=== PATIENT | female | born 1960 | race Caucasian/White ===

== ENCOUNTER 2019-04-17 15:12 | Emergency (ER) | payer MEDICARE ==
[~2019-04-17] VITALS: Ht 152.4 cm; Wt 61.2 kg
[2019-04-17] MEDS ORDERED: HYDROCODONE/APAP 5MG-325MG TAB PO ONE (15:45)
--- NOTE | 2019-04-17 17:00 | Diagnostic Imaging Report ---
Exam: Cervical spine AP lateral oblique History: Dysphagia Comparison: None. Findings: No fracture or malalignment. Multilevel degenerative disc disease most prominent at C5-C6 and C6-C7 with posterior disc osteophyte complex. Foraminal stenosis. Enlarged transverse process C7. Impression: No acute osseous abnormality Multilevel cervical spondylosis most prominent at C5-C6 and C6-C7 Signed by: Dr. Colten Plaza M.D. on 04/17/2019 4:57 PM
--- NOTE | 2019-04-17 17:01 | Diagnostic Imaging Report ---
Exam: Left ankle 3 views History: Pain Comparison: None. Findings: No fracture or malalignment. Joint spaces preserved. No abnormal soft tissue calcification or soft tissue defect. Impression: No acute osseous abnormality Signed by: Dr. Colten Plaza M.D. on 04/17/2019 4:58 PM
== END 2019-04-17 19:18 | disposition home or self-care (01) ==
LOC: ER 15:12
DX: S90.02XA Contusion of left ankle, initial encounter (principal); S16.1XXA Strain of muscle, fascia and tendon at neck level, initial encounter; X50.1XXA Overexertion from prolonged static or awkward postures, initial encounter; Y93.89 Activity, other specified; Y92.410 Unspecified street and highway as the place of occurrence of the external cause
CPT/HCPCS: 72050; 99283